=== PATIENT | male | born 1950 | race Caucasian/White ===

== ENCOUNTER 2016-05-26 10:52 | Outpatient (CLI) | payer OTHER | END 2016-05-26 10:53 | disposition home or self-care (01) | DX: I10 Essential (primary) hypertension (principal); E78.00 Pure hypercholesterolemia, unspecified; Z13.1 Encounter for screening for diabetes mellitus; E66.9 Obesity, unspecified ==

== ENCOUNTER 2016-06-02 09:43 | Outpatient (CLI) | payer OTHER | END 2016-06-02 09:44 | disposition home or self-care (01) | DX: E78.00 Pure hypercholesterolemia, unspecified (principal); R73.9 Hyperglycemia, unspecified ==

== ENCOUNTER 2017-03-28 10:54 | Outpatient (CLI) | payer MEDICARE, OTHER ==
[2017-03-28 17:41] LABS: BASOPHILS # (AUTO) 0.1 10^3/uL (0.0-0.1); BASOPHILS % (AUTO) 1.1 %; EOSINOPHILS # (AUTO) 0.1 10^3/uL (0.0-0.7); EOSINOPHILS % (AUTO) 1.6 %; HGB - HEMOGLOBIN 14.8 g/dL (14.0-18.0); LYMPHOCYTES # (AUTO) 2.3 10^3/uL (1.5-3.5); LYMPHOCYTES % (AUTO) 31.4 %; MEAN CORPUSCULAR HEMOGLOBIN 29.7 pg (27.0-31.0); MEAN CORPUSCULAR HGB CONC 33.1 g/dL (32.0-36.0); MEAN CORPUSCULAR VOLUME 89.8 fL (80.0-94.0); MONOCYTES # (AUTO) 0.6 10^3/uL (0.0-1.0); NEUTROPHILS # (AUTO) 4.2 10^3/uL (1.5-6.6); NEUTROPHILS % (AUTO) 57.9 %; PLT - PLATELET COUNT 258 10^3/uL (130-450); RED CELL DISTRIBUTION WIDTH 14.1 % (12.0-15.0); WHITE BLOOD COUNT 7.3 x10^3/uL (4.8-10.8)
[2017-03-28 18:13] LABS: ALBUMIN 4.8 g/dL (3.2-5.5); ALBUMIN/GLOBULIN RATIO 1.9 (1.0-2.2); ALKALINE PHOSPHATASE 61 IU/L (42-121); ALT ALANINE AMINOTRANSFERASE 92 IU/L (10-60); AST ASPARTATE AMINOTRANSFERASE 49 IU/L (10-42); BILIRUBIN,TOTAL 0.8 mg/dL (0.2-1.0); BUN - BLOOD UREA NITROGEN 12 mg/dL (6-20); CALCIUM 9.2 mg/dL (8.5-10.3); CARBON DIOXIDE - CO2 24 mmol/L (21-32); CHLORIDE 103 mmol/L (101-111); CHOL/HDL RATIO 4.8 (<5.0); CHOLESTEROL 160 mg/dL; CREATININE 0.9 mg/dL (0.6-1.2); GFR - MDRD 85 (>89); GLUCOSE 124 mg/dL (70-100); HDL CHOLESTEROL 33 mg/dL; LDL CHOLESTEROL,CALCULATED 69 mg/dL; LDL/HDL RATIO 2.1 (<3.6); SODIUM 137 mmol/L (135-145); TOTAL PROTEIN 7.3 g/dL (6.7-8.2); VLDL CHOLESTEROL 58 mg/dL
[2017-03-28 18:20] LABS: THYROID STIMULATING HORMONE 1.12 uIU/mL (0.34-5.60)
[2017-03-28 18:31] LABS: FOLATE 17.33 ng/mL (5.90 - >24.8)
== END 2017-03-28 10:55 | disposition home or self-care (01) ==
LOC: LAB.F 10:54
PROVIDERS: ATTEND Family Medicine
DX: R25.1 Tremor, unspecified (principal); E78.00 Pure hypercholesterolemia, unspecified; K21.9 Gastro-esophageal reflux disease without esophagitis; I10 Essential (primary) hypertension; Z13.21 Encounter for screening for nutritional disorder
CPT/HCPCS: 36415; 80053; 80061; 82306; 82607; 82746; 83721; 84443; 85025

== ENCOUNTER 2017-04-12 07:45 | Outpatient (CLI) | payer MEDICARE, OTHER ==
[2017-04-12 12:08] LABS: HB2 TOTAL 16.1 g/dL; HEMOGLOBIN A1C 0.76 g/dL; HEMOGLOBIN A1C % 6.5 % (4.6-6.2)
== END 2017-04-12 07:46 | disposition home or self-care (01) ==
LOC: LAB.F 07:45
PROVIDERS: ATTEND Physician Assistant Medical
DX: R73.01 Impaired fasting glucose (principal); E29.1 Testicular hypofunction
CPT/HCPCS: 36415; 81599; 83036; 84402; 84403

== ENCOUNTER 2017-05-08 13:01 | Outpatient (CLI) | payer MEDICARE, OTHER | END 2017-05-08 13:02 | disposition home or self-care (01) | LOC: SC 13:01 | PROVIDERS: ATTEND Internal Medicine Pulmonary Disease | DX: G47.33 Obstructive sleep apnea (adult) (pediatric) (principal) | CPT/HCPCS: 99203; G0463; 99212 ==

== ENCOUNTER 2017-05-10 08:34 | Day surgery (SDC) | payer MEDICARE, OTHER ==
[2017-05-10] MEDS ORDERED: ONDANSETRON 4 MG/2 ML VIAL IVP ONE (09:00)
[2017-05-10] MEDS ORDERED: MIDAZOLAM 2 MG/2 ML VIAL IVP ONE (09:00)
[2017-05-10] MEDS ORDERED: fentaNYL 100 MCG/2 ML VIAL IVP ONE (09:00)
[2017-05-10] MEDS ORDERED: LACTATED RINGERS 1,000 ML IV ONE (09:05)
[2017-05-10 10:50] VITALS: BP 120/87
== END 2017-05-10 08:35 | disposition home or self-care (01) ==
LOC: SDS 08:34
PROVIDERS: ATTEND Surgery
PROC: 0DBL8ZX Excision of Transverse Colon, Via Natural or Artificial Opening Endoscopic, Diagnostic (ICD-10-PCS; 2017-05-10)
PROC: 0DBH8ZX Excision of Cecum, Via Natural or Artificial Opening Endoscopic, Diagnostic (ICD-10-PCS; 2017-05-10)
PROC: 0DBM8ZX Excision of Descending Colon, Via Natural or Artificial Opening Endoscopic, Diagnostic (ICD-10-PCS; 2017-05-10)
PROC: 0DBK8ZX Excision of Ascending Colon, Via Natural or Artificial Opening Endoscopic, Diagnostic (ICD-10-PCS; principal; 2017-05-10 09:14)
DX: Z12.11 Encounter for screening for malignant neoplasm of colon (principal); K57.30 Diverticulosis of large intestine without perforation or abscess without bleeding; K64.8 Other hemorrhoids; D12.0 Benign neoplasm of cecum; D12.2 Benign neoplasm of ascending colon; D12.4 Benign neoplasm of descending colon; D12.3 Benign neoplasm of transverse colon; K51.40 Inflammatory polyps of colon without complications; I10 Essential (primary) hypertension; E78.00 Pure hypercholesterolemia, unspecified; K21.9 Gastro-esophageal reflux disease without esophagitis; G47.33 Obstructive sleep apnea (adult) (pediatric); Z79.82 Long term (current) use of aspirin
CPT/HCPCS: 45380; 45385; J7120

== ENCOUNTER 2017-06-15 13:01 | Emergency (ER) | payer MEDICARE, OTHER ==
[2017-06-15] MEDS ORDERED: IPRATROPIUM/ALBUTEROL 3 ML NEB INH STA (13:20)
--- NOTE | 2017-06-15 13:52 | XRAY Report ---
EXAM: CHEST RADIOGRAPHY EXAM DATE: 06/15/2017 01:45 PM. CLINICAL HISTORY: Cough with dyspnea. COMPARISON: 05/05/2008. TECHNIQUE: 2 views. FINDINGS: Lungs/Pleura: Lung volumes are low. There is no consolidation or edema. Negative for pleural effusion and pneumothorax. Mediastinum: Heart size is normal. Trachea is midline. Other: None. IMPRESSION: Low lung volumes. Otherwise negative. [facility] Referring Provider Line: [phone] SITE ID: [id number]
--- NOTE | 2017-06-15 14:07 | ED Physician Documentation ---
PD HPI DYSPNEA - Stated complaint Stated Complaint: COUGH - Chief complaint Chief Complaint: Resp - History obtained from History obtained from: Patient - History of Present Illness Timing - onset: How many days ago (3) Timing - duration: Days (3) Timing - details: Still present Worsened by: Coughing Associated symptoms: Cough, Other (Sore throat.) - Additional information Additional information: The patient is a 66-year-old male who presents with cough of 3 days' duration. It is nonproductive, and he denies fever. He reports generalized achiness, sore throat, and slight shortness of breath. He denies headache, chest pain, nausea or vomiting. His cough is worse when lying down, and is interfering with his sleep. He was seen by his primary physician 3 days ago and was prescribed amoxicillin for bronchitis. His was diagnosed with bronchitis one week ago, and her symptoms have improved. He does not smoke cigarettes. Review of Systems Constitutional: reports: Myalgias. denies: Fever Eyes: denies: Discharge Ears: denies: Ear pain Nose: reports: Congestion Throat: reports: Sore throat Cardiac: denies: Chest pain / pressure Respiratory: reports: Dyspnea (slight), Cough GI: denies: Abdominal Pain, Nausea, Vomiting : denies: Dysuria Skin: denies: Rash Musculoskeletal: reports: Back pain. denies: Extremity pain, Extremity swelling Neurologic: denies: Headache PD PAST MEDICAL HISTORY - Past Medical History Past Medical History: Yes Cardiovascular: Hypertension, High cholesterol Respiratory: Other Endocrine/Autoimmune: None GI: Colon polyps : None HEENT: Chronic sinusitis Psych: None Musculoskeletal: Other Derm: None - Past Surgical History General: Cholecystectomy - Present Medications Home Medications: Ambulatory Orders Medication Instructions Recorded Confirmed Aspirin 81 mg PO DAILY 05/09/17 05/10/17 Chondroitin Sulfate A Sodium 1 tab ORAL DAILY 05/09/17 05/10/17 [Chondroitin Sulfate] Esomeprazole Magnesium [Nexium 1 tab ORAL DAILY 05/09/17 05/10/17 24Hr] Lisinopril 1 tab ORAL DAILY 05/09/17 05/10/17 Multivitamin [Multiple Vitamins] 1 tab ORAL DAILY 05/09/17 05/10/17 Rosuvastatin Calcium [Crestor] 20 mg PO DAILY 05/09/17 05/10/17 amLODIPine [Norvasc] 10 mg PO DAILY 05/09/17 05/10/17 Albuterol Sulfate [Proventil Hfa 1 - 2 puffs INH Q4H PRN #1 inhaler 06/15/17 Inhaler] Inhaler, Assist Devices 1 each MC PRN PRN #1 spacer 06/15/17 [Aerochamber Mini] predniSONE [Prednisone] 30 mg PO DAILY #15 tablet 06/15/17 - Allergies Allergies/Adverse Reactions: Allergies Allergy/AdvReac Type Severity Reaction Status Date / Time codeine Allergy Hives Verified 05/10/17 09:09 - Social History Does the pt smoke?: No Smoking Status: Never smoker PD ED PE NORMAL - Vitals Vital signs reviewed: Yes (Initially hypertensive.) - General General: Alert and oriented X 3, Well developed/nourished - HEENT HEENT: Atraumatic, EOMI, Ears normal, Moist mucous membranes, Pharynx benign - Neck Neck: Supple, no meningeal sign, No adenopathy, No JVD - Cardiac Cardiac: RRR, No murmur - Respiratory Respiratory: Other (Few scattered expiratory wheezes. No rales or rhonchi.) - Abdomen Abdomen: Soft, Non tender - Back Back: No CVA TTP - Derm Derm: No rash - Extremities Extremities: No edema, No calf tenderness / cord - Neuro Neuro: Alert and oriented X 3, No motor deficit, Normal speech Results - Vitals Vitals: Vital Signs - 24 hr 06/15/17 06/15/17 06/15/17 13:07 14:00 14:49 Temperature 36.9 C 37.7 C H Heart Rate 95 94 104 H Respiratory 18 20 19 Rate Blood Pressure 155/86 H 139/90 H O2 Saturation 96 94 Oxygen O2 Source Room air - Labs Labs: Laboratory Tests 06/15/17 13:33 Influenza A (Rapid) Negative Influenza B (Rapid) Negative - Rads (name of study) CXR Radiology: Prelim report reviewed, EMP read contemporaneously, See rad report ( Low lung volumes. Otherwise normal.) PD MEDICAL DECISION MAKING - ED course Complexity details: reviewed results, re-evaluated patient, considered differential, d/w patient, d/w family ED course: The patient's presentation is most consistent with acute asthmatic bronchitis. Chest x-ray does not reveal evidence of pneumonia, and clinically his presentation does not suggest congestive heart failure, and I doubt pulmonary embolus. Influenza swab is negative. Treatment in the emergency department included administration of DuoNeb nebulizer, which improved his air movement, and after which he coughed up a mucous plug. He is being discharged with prescription for albuterol inhaler and prednisone. I discussed with him and his the expected course of illness, outpatient treatment and follow-up, as well as potentially worrisome signs or symptoms that should prompt reevaluation in the emergency department. Departure - Departure Disposition: 01 Home, Self Care Clinical Impression: Bronchitis Condition: Stable Instructions: ED Bronchitis Asthmatic Follow-Up: Vanessa Peña PA-C [Primary Care Provider] - Prescriptions: Albuterol Sulfate [Proventil Hfa Inhaler] 1 - 2 puffs INH Q4H PRN #1 inhaler PRN Reason: Shortness Of Air/Wheezing Inhaler, Assist Devices [Aerochamber Mini] 1 each MC PRN PRN #1 spacer PRN Reason: Cough predniSONE [Prednisone] 30 mg PO DAILY #15 tablet Comments: Use the albuterol inhaler every 4-6 hours if needed for breathing difficulty. Take prednisone daily as prescribed. Follow up with your primary physician within 1-2 weeks. Call to schedule appointment. Return to the emergency department if you develop increasing difficulty breathing, or otherwise worsening symptoms. Discharge Date/Time: 06/15/17 14:49
[2017-06-15 14:51] VITALS: BP 139/90
== END 2017-06-15 14:49 | disposition home or self-care (01) ==
LOC: ED 13:01
DX: J40 Bronchitis, not specified as acute or chronic (principal); I10 Essential (primary) hypertension; E78.00 Pure hypercholesterolemia, unspecified
CPT/HCPCS: 71046; 87275; 87276; 94640; 99283; 99284

== ENCOUNTER 2017-06-25 19:12 | Outpatient (CLI) | payer MEDICARE, OTHER | END 2017-06-25 19:13 | disposition home or self-care (01) | LOC: SC 19:12 | PROVIDERS: ATTEND Internal Medicine Pulmonary Disease | DX: G47.33 Obstructive sleep apnea (adult) (pediatric) (principal); G47.61 Periodic limb movement disorder | CPT/HCPCS: 95810 ==

== ENCOUNTER 2017-07-17 15:36 | Outpatient (CLI) | payer MEDICARE, OTHER | END 2017-07-17 15:37 | disposition home or self-care (01) | LOC: SC 15:36 | PROVIDERS: ATTEND Nurse Practitioner Family | DX: G47.33 Obstructive sleep apnea (adult) (pediatric) (principal); G47.61 Periodic limb movement disorder | CPT/HCPCS: 99214 ==

== ENCOUNTER 2017-08-03 11:31 | Outpatient (CLI) | payer MEDICARE, OTHER | END 2017-08-03 11:32 | disposition home or self-care (01) | LOC: LAB.F 11:31 | PROVIDERS: ATTEND Internal Medicine | DX: E29.1 Testicular hypofunction (principal) | CPT/HCPCS: 36415; 84403 ==

== ENCOUNTER 2017-09-10 10:42 | Outpatient (CLI) | payer MEDICARE, OTHER | END 2017-09-10 10:43 | disposition home or self-care (01) | LOC: SC 10:42 | PROVIDERS: ATTEND Nurse Practitioner Family | DX: G47.33 Obstructive sleep apnea (adult) (pediatric) (principal) | CPT/HCPCS: 99215; G0463; 99212 ==

== ENCOUNTER 2017-11-24 19:21 | Outpatient (CLI) | payer MEDICARE, OTHER | END 2017-11-24 19:22 | disposition home or self-care (01) | LOC: SC 19:21 | PROVIDERS: ATTEND Internal Medicine Pulmonary Disease | DX: G47.33 Obstructive sleep apnea (adult) (pediatric) (principal); G47.61 Periodic limb movement disorder | CPT/HCPCS: 95811 ==

== ENCOUNTER 2018-01-01 14:06 | Outpatient (CLI) | payer MEDICARE, OTHER | END 2018-01-01 14:07 | disposition home or self-care (01) | LOC: SC 14:06 | PROVIDERS: ATTEND Nurse Practitioner Family | DX: G47.33 Obstructive sleep apnea (adult) (pediatric) (principal); G47.61 Periodic limb movement disorder | CPT/HCPCS: 99214; G0463; 99212 ==

== ENCOUNTER 2018-02-23 19:07 | Outpatient (CLI) | payer MEDICARE, OTHER | END 2018-02-24 19:08 | disposition EMS.NT | LOC: EMS 19:07 | PROVIDERS: ATTEND Surgery | DX: R07.89 Other chest pain (principal) ==

== ENCOUNTER 2018-04-01 13:05 | Outpatient (CLI) | payer MEDICARE, OTHER | END 2018-04-01 13:06 | disposition home or self-care (01) | LOC: SC 13:05 | PROVIDERS: ATTEND Nurse Practitioner Family | DX: G47.33 Obstructive sleep apnea (adult) (pediatric) (principal) | CPT/HCPCS: 99214; G0463; 99212 ==

== ENCOUNTER 2018-05-01 08:00 | Outpatient (CLI) | payer MEDICARE, OTHER ==
[2018-05-01 17:52] LABS: BASOPHILS # (AUTO) 0.1 10^3/uL (0.0-0.1); EOSINOPHILS # (AUTO) 0.2 10^3/uL (0.0-0.7); HGB - HEMOGLOBIN 15.5 g/dL (14.0-18.0); LYMPHOCYTES # (AUTO) 2.3 10^3/uL (1.5-3.5); LYMPHOCYTES % (AUTO) 29.4 %; MEAN CORPUSCULAR HEMOGLOBIN 29.4 pg (27.0-31.0); MEAN CORPUSCULAR HGB CONC 32.7 g/dL (32.0-36.0); MEAN PLATELET VOLUME 9.1 fL (7.4-11.4); MONOCYTES # (AUTO) 0.6 10^3/uL (0.0-1.0); MONOCYTES % (AUTO) 7.6 %; NEUTROPHILS # (AUTO) 4.8 10^3/uL (1.5-6.6); PLT - PLATELET COUNT 295 10^3/uL (130-450); RED BLOOD COUNT 5.26 10^6/uL (4.70-6.10); RED CELL DISTRIBUTION WIDTH 14.9 % (12.0-15.0); WHITE BLOOD COUNT 7.9 x10^3/uL (4.8-10.8)
== END 2018-05-01 23:59 | disposition home or self-care (01) ==
LOC: LAB.F 08:00
PROVIDERS: ATTEND Internal Medicine Gastroenterology
DX: E66.01 Morbid (severe) obesity due to excess calories (principal); I10 Essential (primary) hypertension
CPT/HCPCS: 36415; 85025

== ENCOUNTER 2018-05-23 12:34 | Day surgery (SDC) | payer MEDICARE, OTHER ==
--- NOTE | 2018-05-23 13:26 | ANESTHESIA ---
Pre-Anesthesia VS, & Labs - Diagnosis History of colon polyps and GERD - Procedure EGD/Coloscopy Vital Signs: Temp Pulse Resp BP Pulse Ox 37.2 C 80 20 155/94 H 97 05/23/18 12:45 05/23/18 12:45 05/23/18 12:45 05/23/18 12:45 05/23/18 12:45 Height 5 ft 8 in Weight (kg) 112.4 kg Body Mass Index 39.5 - NPO >8 hours Last Fluid Intake: last prep drink at 0800 Home Medications and Allergies Home Medications: Ambulatory Orders Albuterol Sulfate [Proair Hfa Inhaler] 2 puffs INH Q4H PRN 04/18/18 Fluticasone Propionate [Flovent Diskus] 1 spray BARBARA BID 04/18/18 Fluticasone/Salmeterol [Advair 250-50 Diskus] 1 spray IH BID 04/18/18 Omeprazole 20 mg PO QDDINNER 04/18/18 Testosterone Cypionate [Depo-Testosterone] 0.5 ml IM OAW 04/18/18 Aspirin 81 mg PO DAILY 05/09/17 Lisinopril 40 mg PO DAILY 05/09/17 Multivitamin [Multiple Vitamins] 1 tab ORAL DAILY 05/09/17 Rosuvastatin Calcium [Crestor] 20 mg PO QPM 05/09/17 amLODIPine [Norvasc] 10 mg PO DAILY 05/09/17 Albuterol Sulfate [Proair Hfa Inhaler] 2 puffs INH Q4H PRN 04/18/18 Fluticasone Propionate [Flovent Diskus] 1 spray BARBARA BID 04/18/18 Fluticasone/Salmeterol [Advair 250-50 Diskus] 1 spray IH BID 04/18/18 Omeprazole 20 mg PO QDDINNER 04/18/18 Testosterone Cypionate [Depo-Testosterone] 0.5 ml IM OAW 04/18/18 Allergies/Adverse Reactions: Allergies Allergy/AdvReac Type Severity Reaction Status Date / Time codeine Allergy paranoid Verified 04/18/18 10:20 Anes History & Medical History - Anesthetic History Anesthesia Complications: reports: Post-Operative Nausea/Vomiting - Medical History Cardiovascular: reports: Hypertension, High cholesterol Pulmonary: reports: Sleep apnea, CPAP use, 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) Gastrointestinal: reports: GERD, Colon polyps Urinary: reports: None Neuro: reports: None Musculoskeletal: reports: Other Endocrine/Autoimmune: reports: None Skin: reports: None Smoking Status: Never smoker Psychosocial: reports: Other (PTSD) - Surgical History General: Cholecystectomy Exam General: Alert, Oriented x3, Cooperative, No acute distress Dental: WNL Mouth Openin Fingerbreadth Neck Mobility: Normal Mallampati classification: II Thyromental Distance: 4-6 cm Respiratory: Lungs clear, Normal breath sounds, No respiratory distress, No accessory muscle use Cardiovascular: Regular rate, Normal S1, Normal S2, No murmurs Mental/Cognitive Status: Alert/Oriented X3, Normal for patient Plan Anesthesia Type: MAC Consent for Procedure(s) Verified and Reviewed: Yes Code Status: Attempt Resuscitation ASA classification: 3-Severe systemic disease Is this case an emergency?: No
[2018-05-23] MEDS ORDERED: MIDAZOLAM 2 MG/2 ML VIAL ONE (13:46)
[2018-05-23] MEDS ORDERED: fentaNYL 100 MCG/2 ML VIAL ONE (13:46)
[2018-05-23] MEDS ORDERED: LIDO GARGLE 30 ML BOTTLE ONE (14:47)
[2018-05-23] MEDS ORDERED: LIDO GARGLE 30 ML BOTTLE PO ONE (15:01)
[2018-05-23] MEDS ORDERED: LACTATED RINGERS 1,000 ML IV ONE (15:01)
[2018-05-23] MEDS ORDERED: PROPOFOL 200 MG/20 ML VIAL IVP ONE (16:06)
[2018-05-23 16:25] VITALS: BP 138/81
== END 2018-05-23 12:35 | disposition home or self-care (01) ==
LOC: SDS 12:34
PROVIDERS: ATTEND Internal Medicine Gastroenterology
PROC: 0DBK8ZZ Excision of Ascending Colon, Via Natural or Artificial Opening Endoscopic (ICD-10-PCS; 2018-05-23)
PROC: 0DBM8ZZ Excision of Descending Colon, Via Natural or Artificial Opening Endoscopic (ICD-10-PCS; 2018-05-23)
PROC: 0DBH8ZZ Excision of Cecum, Via Natural or Artificial Opening Endoscopic (ICD-10-PCS; 2018-05-23)
PROC: 0DBP8ZZ Excision of Rectum, Via Natural or Artificial Opening Endoscopic (ICD-10-PCS; 2018-05-23)
PROC: 0DBL8ZZ Excision of Transverse Colon, Via Natural or Artificial Opening Endoscopic (ICD-10-PCS; principal; 2018-05-23 14:00)
PROC: 0DB78ZX Excision of Stomach, Pylorus, Via Natural or Artificial Opening Endoscopic, Diagnostic (ICD-10-PCS; 2018-05-23 14:00)
DX: K29.50 Unspecified chronic gastritis without bleeding (principal); K21.9 Gastro-esophageal reflux disease without esophagitis; D12.2 Benign neoplasm of ascending colon; D12.0 Benign neoplasm of cecum; D12.4 Benign neoplasm of descending colon; D12.3 Benign neoplasm of transverse colon; D12.8 Benign neoplasm of rectum; K57.30 Diverticulosis of large intestine without perforation or abscess without bleeding; I10 Essential (primary) hypertension; E78.00 Pure hypercholesterolemia, unspecified; E66.01 Morbid (severe) obesity due to excess calories; Z68.37 Body mass index [BMI] 37.0-37.9, adult; Z88.5 Allergy status to narcotic agent; Z79.51 Long term (current) use of inhaled steroids
CPT/HCPCS: 43239; 45380; 45385; A9270; J7120

== ENCOUNTER 2018-09-03 12:46 | Outpatient (CLI) | payer MEDICARE, OTHER | END 2018-09-03 12:47 | disposition home or self-care (01) | LOC: SC 12:46 | PROVIDERS: ATTEND Nurse Practitioner Family | DX: G47.33 Obstructive sleep apnea (adult) (pediatric) (principal) | CPT/HCPCS: 99214; G0463; 99212 ==

== ENCOUNTER 2019-02-12 10:02 | Outpatient (CLI) | payer MEDICARE, OTHER ==
[2019-02-12 19:00] LABS: BASOPHILS # (AUTO) 0.1 10^3/uL (0.0-0.1); BASOPHILS % (AUTO) 0.8 %; EOSINOPHILS # (AUTO) 0.1 10^3/uL (0.0-0.7); EOSINOPHILS % (AUTO) 1.5 %; HGB - HEMOGLOBIN 16.9 g/dL (14.0-18.0); LYMPHOCYTES # (AUTO) 2.6 10^3/uL (1.5-3.5); LYMPHOCYTES % (AUTO) 35.6 %; MEAN CORPUSCULAR HEMOGLOBIN 29.5 pg (27.0-31.0); MEAN CORPUSCULAR HGB CONC 32.8 g/dL (32.0-36.0); MEAN CORPUSCULAR VOLUME 90.2 fL (80.0-94.0); MEAN PLATELET VOLUME 11.1 fL (7.4-11.4); MONOCYTES # (AUTO) 0.7 10^3/uL (0.0-1.0); MONOCYTES % (AUTO) 9.4 %; NEUTROPHILS # (AUTO) 3.7 10^3/uL (1.5-6.6); NEUTROPHILS % (AUTO) 51.7 %; PLT - PLATELET COUNT 259 10^3/uL (130-450); RED BLOOD COUNT 5.72 10^6/uL (4.70-6.10); RED CELL DISTRIBUTION WIDTH 13.9 % (12.0-15.0); WHITE BLOOD COUNT 7.2 x10^3/uL (4.8-10.8)
[2019-02-12 19:18] LABS: ALBUMIN 4.8 g/dL (3.2-5.5); ALBUMIN/GLOBULIN RATIO 1.8 (1.0-2.2); BILIRUBIN,TOTAL 0.8 mg/dL (0.2-1.0); CALCIUM 9.1 mg/dL (8.5-10.3); TOTAL PROTEIN 7.5 g/dL (6.7-8.2)
== END 2019-02-12 10:03 | disposition home or self-care (01) ==
LOC: LAB.S 10:02
PROVIDERS: ATTEND Internal Medicine
DX: R10.31 Right lower quadrant pain (principal)
CPT/HCPCS: 36415; 80053; 85025

== ENCOUNTER 2019-02-21 15:11 | Outpatient (CLI) | payer MEDICARE, OTHER ==
[2019-02-21] MEDS ORDERED: IOVERSOL 320 50 ML VIAL ONE (15:23)
[2019-02-21] MEDS ORDERED: IOVERSOL 320 100 ML VIAL IVP ONE ×2 (15:23→18:22)
[2019-02-21] MEDS ORDERED: IOVERSOL 320 50 ML VIAL PO ONE (18:22)
--- NOTE | 2019-02-22 10:16 | XRAY Report ---
Reason: BILAT SHOULDER PAIN X 3 MONTHS NO KNOWN TRAUMA Procedure Date: 02/21/2019 Accession Number: [id number] / [id number] Procedure: XR - Shoulder 2 View BILAT CPT Code: Final Report FULL RESULT: EXAM: BILATERAL SHOULDER RADIOGRAPHY EXAM DATE: 02/21/2019 03:32 PM HISTORY: BILAT SHOULDER PAIN X 3 MONTHS NO KNOWN TRAUMA COMPARISON: None. TECHNIQUE: 2 views of each shoulder which appear to be a Grashey and scapular Y views FINDINGS: Right: Glenohumeral joint: Somewhat suboptimal positioning. No significant abnormality seen. AC joint: Limited by suboptimal positioning. Probable mild degenerative arthritis. No significant focal bone lesion. Unremarkable soft tissues. Left: Glenohumeral joint: Unremarkable. AC joint: Probable mild degenerative arthritis. No significant focal bone lesion. Unremarkable soft tissues. IMPRESSION: Mild bilateral SI joint degenerative arthritis. Normal alignment at both shoulders. No significant glenohumeral abnormality seen. [facility]
--- NOTE | 2019-02-23 09:12 | CT Report ---
Reason: ABD PAIN, RLQ Procedure Date: 02/21/2019 Accession Number: [id number] / [id number] Procedure: CT - ABDOMEN W CPT Code: Final Report FULL RESULT: EXAM: CT ABDOMEN AND PELVIS EXAM DATE: 02/21/2019 04:40 PM. CLINICAL HISTORY: Abdominal pain, right lower quadrant. COMPARISONS: None. TECHNIQUE: Routine helical CT imaging was performed through the abdomen and pelvis. IV contrast: 100 cc of Optiray 320. Enteric contrast: No. Reconstructions: Coronal and sagittal. In accordance with CT protocol optimization, one or more of the following dose reduction techniques were utilized for this exam: automated exposure control, adjustment of mA and/or KV based on patient size, or use of iterative reconstructive technique. FINDINGS: Lung Bases: Bases are clear. Small incidental hiatal hernia. Multivessel coronary artery calcifications without cardiac enlargement or pericardial effusion noted. Liver: Mildly fatty liver. No mass. No intrahepatic bile duct dilation. Portal vein is patent. Gallbladder/Bile Ducts: Gallbladder is absent. No common bile duct dilation noted. Spleen: Normal. Pancreas: Normal. Adrenal Glands: Normal. Kidneys: Normal. No masses or hydronephrosis. Peritoneal Cavity/Bowel: Normal. No free fluid, free air or adenopathy. No masses or acute inflammatory process. Appendix not seen. No right lower quadrant inflammation. Colonic diverticulosis is noted. Segment of underdistended sigmoid colon demonstrates mild wall thickening without significant adjacent inflammation. No bowel dilation, perforation or abscess seen. Given the under distention and lack of adjacent inflammation, favor a benign process rather than infection or acute abnormality. Pelvic Organs: Mild prostate and seminal vesicle enlargement noted. No obvious mass identified. Otherwise, the bladder and visualized pelvic organs are within normal limits. No collections, ascites or adenopathy. Vasculature: Patchy atheromatous plaques are present in the abdominal aorta and branch vessels. No aneurysm. Normal IVC. Bones: No significant abnormality. Other: None. IMPRESSION: 1. Segment of underdistended sigmoid colon demonstrates mild wall thickening without significant adjacent inflammation. No bowel dilation, perforation or abscess seen. Given the under distention and lack of adjacent inflammation, favor a benign process rather than infection or acute abnormality. Appendix not seen. No focal right lower quadrant inflammation. 2. Mildly fatty liver. No mass. 3. Previous cholecystectomy. 4. Mildly enlarged prostate and seminal vesicles. No prostate mass. [facility]
== END 2019-02-21 15:12 | disposition home or self-care (01) ==
LOC: DI 15:11
PROVIDERS: ATTEND Internal Medicine
DX: R10.31 Right lower quadrant pain (principal); M25.511 Pain in right shoulder; M25.512 Pain in left shoulder; M47.898 Other spondylosis, sacral and sacrococcygeal region; Z90.49 Acquired absence of other specified parts of digestive tract; K76.0 Fatty (change of) liver, not elsewhere classified; N40.0 Benign prostatic hyperplasia without lower urinary tract symptoms
CPT/HCPCS: 73030; 74160; Q9967

== ENCOUNTER 2019-11-05 10:56 | Outpatient (CLI) | payer MEDICARE, OTHER ==
--- NOTE | 2019-11-05 11:43 | SLEEP CARE CONSULTATION ---
Information from patient questionnaire entered by Pastora Ness. I have reviewed and concur with the information entered by Pastora Ness. This document represents the service I personally performed and the decisions made by , Jaylyn Randle ARNP. History of Present Illness Service Date and Time: 11/05/2019 1056 Previous diagnosis: Severe, Obstructive Sleep Apnea-Hypopnea Syndrome AHI: 58.8 (in 2018) Reason for follow up: annual (last seen 2019) Equipment type: CPAP Equipment obtained from: [facility] (getting supplies as needed but feels they are overdoing supplies) Mask style: Nasal (over nose; would like to change to pillows) Backup mask available: Yes (old mask) Last cushion change: 2 weeks ago Prior sleep studies: Yes (2007 in [place]) Year and Where: 2018 - [facility] Type of Sleep Study: Polysomnography HPI additional information: ЮЛИЯ CHRISTINE was diagnosed to have severe, AHI 58.8, obstructive sleep apnea- hypopnea syndrome and returned today for CPAP therapy annual follow-up. CPAP Compliance Data - Data Reviewed with Patient Average duration of nightly device use: 8.1 Compliance rate %: 98.9 (180 days) Current pressure setting (cmH2O): 11-15 Humidity settin Heated hose settin Average residual AHI: 0.9 Average large leak: 6 min 51 sec Subjective Patient concerns: reports: mask discomfort (would like to change to nasal pillows that are more comfortable for him). denies: aerophagia, air blowing in eyes, mask leak noise, condensation in mask/hose, nasal congestion, dry mouth, nose, throat, epistaxis, other Observed to snore while using device: No Current pressure setting perceived as: comfortable On therapy, patient: reports: sleeping better, awakening more refreshed, being more awake and alert during the day, more rested overall. denies: drowsiness while driving Initial [place] Sleepiness Scale score: 13 (in 2018) Current [place] Sleepiness Scale score: 10 Allergies and Home Medications Drug allergies reviewed: Yes (codiene) Home medication list reviewed: Yes (no changes) Review of Systems Review of systems same as previous: Yes (no changes) Physical Exam Heart Rate: 64 O2 Saturation: 97 Height: 5 ft 8 in Weight: 266 lb Body Mass Index: 40.4 BMI Classification: Morbidly Obese Impression and Plan 1. Obstructive Sleep Apnea-Hypopnea Syndrome, severe, with good treatment compliance and good apnea control. On CPAP therapy, the patient has better sleep quality and is more rested overall. He has been using [employer] for his DME. He states he gets supplies as needed but feels they are just trying to get him to order more and more stuff. He has ordered supplies from other places, like filters, because he they don't send the right filters for his machine. He also used to use a nasal pillow cushion mask but they only send him a nasal mask that just fits over his nose. He states the mask works fine and is comfortable, but he prefers the other mask. He states his machine is working fine but about 3 weeks ago when he tried to change the humidity setting he was unable to adjust it. 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 He was instructed on how to change his setting and to let us know if he is unable to do this on his own. Patient's apnea severity and rationale for treatment to reduce apnea, improve sleep quality and reduce cardiovascular and cerebrovascular events was reviewed. I also reviewed the benefit of consistent device use of CPAP for hypertension, and depression. * Continue auto CPAP pressure at 11-15 cmH2O * Change mask to nasal pillows mask. * Notify me if snoring with mask or feeling that the pressure is too much or too little * Attempt to lose weight * Call this office if any problems using CPAP * Return for follow up in 1 year, or sooner if concerns arise Visit Type: In Office Time Spent with Patient (minutes): 20 Provider Statement: I spent 100% of the Face to Face Visit with the patient with greater than 50% spent counseling the patient and coordination of care.
== END 2019-11-05 10:57 | disposition home or self-care (01) ==
LOC: SC 10:56
PROVIDERS: ATTEND Nurse Practitioner Family
DX: G47.33 Obstructive sleep apnea (adult) (pediatric) (principal); E66.01 Morbid (severe) obesity due to excess calories; Z68.41 Body mass index [BMI] 40.0-44.9, adult
CPT/HCPCS: 99213; G0463; 99212

== ENCOUNTER 2019-12-24 13:33 | Emergency (ER) | payer MEDICARE, OTHER ==
--- NOTE | 2019-12-24 14:29 | ED Physician Documentation ---
History of Present Illness - Stated complaint Stated Complaint: FEVER - Chief complaint Chief Complaint: Abd Pain - History obtained from History obtained from: Patient - Additonal information Additional information: 68-year-old gentleman has had a fever for the most part for the last 5 days generally around 101. He has a chronic cough. Complains of abdominal pain from coughing, has a known ventral hernia there. He is slightly constipated but denies other bowel issues currently. No sick contacts. The cough is nonproductive. No shortness of breath. Review of Systems Constitutional: reports: Fever, Chills, Fatigue. 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) Neuro: None Endocrine/Autoimmune: None GI: Colon polyps : None HEENT: Chronic sinusitis Psych: None Musculoskeletal: Other Derm: None - Past Surgical History General: Cholecystectomy - Present Medications Home Medications: Ambulatory Orders Medication Instructions Recorded Confirmed Aspirin 81 mg PO DAILY 05/09/17 05/23/18 Multivitamin [Multiple Vitamins] 1 tab ORAL DAILY 05/09/17 05/23/18 Rosuvastatin Calcium [Crestor] 20 mg PO QPM 05/09/17 05/23/18 amLODIPine [Norvasc] 10 mg PO DAILY 05/09/17 05/23/18 lisinopriL [Lisinopril] 40 mg PO DAILY 05/09/17 05/23/18 Albuterol Sulfate [Proair Hfa 2 puffs INH Q4H PRN 04/18/18 04/18/18 Inhaler] Fluticasone Propionate [Flovent 1 spray BARBARA BID 04/18/18 05/23/18 Diskus] Fluticasone/Salmeterol [Advair 1 spray IH BID 04/18/18 05/23/18 250-50 Diskus] Omeprazole 20 mg PO QDDINNER 04/18/18 05/23/18 Testosterone Cypionate 0.5 ml IM OAW 04/18/18 05/23/18 [Depo-Testosterone] - Allergies Allergies/Adverse Reactions: Allergies Allergy/AdvReac Type Severity Reaction Status Date / Time codeine Allergy paranoid Verified 12/24/19 13:57 - Social History Does the pt smoke?: No Smoking Status: Never smoker PD ED PE NORMAL - Vitals Vital signs reviewed: Yes - General General: Alert and oriented X 3, No acute distress - Neck Neck: Supple, no meningeal sign, No bony TTP - Cardiac Cardiac: RRR, No murmur - Respiratory Respiratory: No respiratory distress, Clear bilaterally - Abdomen Abdomen: Soft, Non tender - Derm Derm: No rash - Neuro Neuro: Alert and oriented X 3, Normal speech Results - Vitals Vitals: Vital Signs - 24 hr 12/24/19 12/24/19 13:47 15:31 Temperature 36.8 C 37.2 C Heart Rate 77 80 Respiratory 18 18 Rate Blood Pressure 143/93 H 136/79 H O2 Saturation 96 100 Oxygen O2 Source Room air - Labs Labs: Laboratory Tests 12/24/19 12/24/19 12/24/19 14:34 14:49 14:49 WBC 10.0 RBC 5.81 Hgb 17.3 Hct 51.1 MCV 88.0 MCH 29.8 MCHC 33.9 RDW 14.0 Plt Count 257 MPV 10.4 Neut # (Auto) 6.3 Lymph # (Auto) 2.4 [place] # (Auto) 0.9 Eos # (Auto) 0.2 Baso # (Auto) 0.1 Absolute Nucleated RBC 0.00 Nucleated RBC % 0.0 Sodium 138 Potassium 4.2 Chloride 102 Carbon Dioxide 25 Anion Gap 11.0 BUN 18 Creatinine 1.0 Estimated GFR (MDRD) 75 L Glucose 108 H Lactic Acid Calcium 9.6 Total Bilirubin 0.6 AST 31 ALT 62 H Alkaline Phosphatase 65 Total Protein 7.6 Albumin 4.8 Globulin 2.8 Albumin/Globulin Ratio 1.7 Lipase 21 L Urine Color YELLOW Urine Clarity CLEAR Urine pH 6.0 Ur Specific [place] 1.025 Urine Protein NEGATIVE Urine Glucose (UA) NEGATIVE Urine Ketones NEGATIVE Urine Occult Blood NEGATIVE Urine Nitrite NEGATIVE Urine Bilirubin NEGATIVE Urine Urobilinogen 0.2 (NORMAL) Ur Leukocyte Esterase NEGATIVE Ur Microscopic Review NOT INDICATED Urine Culture Comments NOT INDICATED 12/24/19 14:49 WBC RBC Hgb Hct MCV MCH MCHC RDW Plt Count MPV Neut # (Auto) Lymph # (Auto) [place] # (Auto) Eos # (Auto) Baso # (Auto) Absolute Nucleated RBC Nucleated RBC % Sodium Potassium Chloride Carbon Dioxide Anion Gap BUN Creatinine Estimated GFR (MDRD) Glucose Lactic Acid 1.1 Calcium Total Bilirubin AST ALT Alkaline Phosphatase Total Protein Albumin Globulin Albumin/Globulin Ratio Lipase Urine Color Urine Clarity Urine pH Ur Specific [place] Urine Protein Urine Glucose (UA) Urine Ketones Urine Occult Blood Urine Nitrite Urine Bilirubin Urine Urobilinogen Ur Leukocyte Esterase Ur Microscopic Review Urine Culture Comments - Rads (name of study) 1v Chest Radiology: EMP read contemporaneously (NAD) PD MEDICAL DECISION MAKING - ED course ED course: 68-year-old gentleman with fever, some respiratory complaints. Abdominal pain from a chronic hernia but no tenderness. Diagnostics are unremarkable with normal chest x-ray and labs. Watchful waiting was advised. Covid test is pending. Departure - Departure Disposition: Home, Self Care Clinical Impression: Bronchitis Fever Qualifiers: Fever type: due to other condition Qualified Code(s): R50.81 - Fever presenting with conditions classified elsewhere Condition: Stable Record reviewed to determine appropriate education?: Yes Instructions: ED Fever Unconf Cause Comments: Blood work looks fine, no evidence of pneumonia on x-ray, your urinalysis is normal. Be aware that your coronavirus test is pending and you need to self quarantine until the results are done and negative. We will call you if you have a positive result. Return if worsening, follow-up with your doctor on or about Sunday if not better. You have a Covid test pending. You need to self quarantine until the result is done and negative. Do not leave your house. Do not get near anybody. The results should be done in 48 to 72 hours. We will call with a positive result, the fastest way to get a negative result for confirmation though is to go to the hospital website at [email or web address], click on the my [employer] tab and sign up for the patient portal. Discharge Date/Time: 12/24/19 15:30
[2019-12-24 14:57] LABS: BASOPHILS # (AUTO) 0.1 10^3/uL (0.0-0.1); BASOPHILS % (AUTO) 1.1 %; EOSINOPHILS # (AUTO) 0.2 10^3/uL (0.0-0.7); EOSINOPHILS % (AUTO) 2.2 %; HGB - HEMOGLOBIN 17.3 g/dL (14.0-18.0); LYMPHOCYTES # (AUTO) 2.4 10^3/uL (1.5-3.5); LYMPHOCYTES % (AUTO) 23.9 %; MEAN CORPUSCULAR HEMOGLOBIN 29.8 pg (27.0-31.0); MEAN CORPUSCULAR HGB CONC 33.9 g/dL (32.0-36.0); MEAN PLATELET VOLUME 10.4 fL (7.4-11.4); MONOCYTES # (AUTO) 0.9 10^3/uL (0.0-1.0); MONOCYTES % (AUTO) 8.8 %; NEUTROPHILS # (AUTO) 6.3 10^3/uL (1.5-6.6); NEUTROPHILS % (AUTO) 63.2 %; PLT - PLATELET COUNT 257 10^3/uL (130-450); RED BLOOD COUNT 5.81 10^6/uL (4.70-6.10)
[2019-12-24 15:00] LABS: BILIRUBIN,URINE NEGATIVE (NEGATIVE); GLUCOSE, URINE (UA) NEGATIVE (NEGATIVE); KETONES,URINE (UA) NEGATIVE (NEGATIVE); LEUKOCYTE ESTERASE, URINE NEGATIVE (NEGATIVE); NITRITE,URINE NEGATIVE (NEGATIVE); OCCULT BLOOD,URINE NEGATIVE (NEGATIVE); PROTEIN,URINE NEGATIVE (NEGATIVE); UROBILINOGEN,URINE 0.2 (NORMAL) E.U./dL (NORMAL)
[2019-12-24 15:01] LABS: CLARITY,URINE CLEAR (CLEAR)
--- NOTE | 2019-12-24 15:09 | XRAY Report ---
PROCEDURE: Chest 1 View X-Ray INDICATIONS: cough fever TECHNIQUE: One view of the chest was acquired. COMPARISON: CXR 06/15/2017. CT abdomen and pelvis 02/21/2019. FINDINGS: Surgical changes and devices: None. Lungs and pleura: No pleural effusions or pneumothorax. Lungs are clear. Mediastinum: Mediastinal contours appear unchanged. Heart size is enlarged, unchanged. Bones and chest wall: No suspicious bony lesions. Overlying soft tissues appear unremarkable. IMPRESSION: No consolidation identified to suggest pneumonia. Reviewed by: Danis Canela MD on 12/24/2019 3:08 PM PDT Approved by: Danis Canela MD on 12/24/2019 3:08 PM PDT Station ID: [id number]
[2019-12-24 15:14] LABS: ALBUMIN 4.8 g/dL (3.2-5.5); ALBUMIN/GLOBULIN RATIO 1.7 (1.0-2.2); BILIRUBIN,TOTAL 0.6 mg/dL (0.2-1.0); CALCIUM 9.6 mg/dL (8.5-10.3); TOTAL PROTEIN 7.6 g/dL (6.7-8.2)
[2019-12-24 15:32] VITALS: BP 136/79
== END 2019-12-24 15:30 | disposition home or self-care (01) ==
LOC: ED 13:33
DX: J40 Bronchitis, not specified as acute or chronic (principal); R50.81 Fever presenting with conditions classified elsewhere; Z20.828 Contact with and (suspected) exposure to other viral communicable diseases; K43.9 Ventral hernia without obstruction or gangrene; I10 Essential (primary) hypertension; Z79.82 Long term (current) use of aspirin
CPT/HCPCS: 36415; 71045; 80053; 81003; 83605; 83690; 85025; 99284; U0004; 81001; 87086

== ENCOUNTER 2020-05-06 09:50 | Outpatient (CLI) | payer MEDICARE, OTHER ==
[2020-05-06 14:46] LABS: BASOPHILS # (AUTO) 0.1 10^3/uL (0.0-0.1); BASOPHILS % (AUTO) 1.3 %; EOSINOPHILS # (AUTO) 0.3 10^3/uL (0.0-0.7); EOSINOPHILS % (AUTO) 3.2 %; HCT - HEMATOCRIT 46.6 % (42.0-52.0); HGB - HEMOGLOBIN 15.6 g/dL (14.0-18.0); LYMPHOCYTES # (AUTO) 2.5 10^3/uL (1.5-3.5); LYMPHOCYTES % (AUTO) 31.8 %; MEAN CORPUSCULAR HEMOGLOBIN 30.4 pg (27.0-31.0); MEAN CORPUSCULAR HGB CONC 33.5 g/dL (32.0-36.0); MEAN CORPUSCULAR VOLUME 90.7 fL (80.0-94.0); MEAN PLATELET VOLUME 10.6 fL (7.4-11.4); MONOCYTES # (AUTO) 0.7 10^3/uL (0.0-1.0); MONOCYTES % (AUTO) 8.5 %; NEUTROPHILS # (AUTO) 4.2 10^3/uL (1.5-6.6); NEUTROPHILS % (AUTO) 53.4 %; PLT - PLATELET COUNT 311 10^3/uL (130-450); RED BLOOD COUNT 5.14 10^6/uL (4.70-6.10); RED CELL DISTRIBUTION WIDTH 14.4 % (12.0-15.0); WHITE BLOOD COUNT 7.8 x10^3/uL (4.8-10.8)
[2020-05-06 15:36] LABS: ALBUMIN 4.5 g/dL (3.2-5.5); ALBUMIN/GLOBULIN RATIO 1.7 (1.0-2.2); ALKALINE PHOSPHATASE 50 IU/L (42-121); ALT ALANINE AMINOTRANSFERASE 36 IU/L (10-60); AST ASPARTATE AMINOTRANSFERASE 26 IU/L (10-42); BILIRUBIN,TOTAL 1.1 mg/dL (0.2-1.0); BUN - BLOOD UREA NITROGEN 16 mg/dL (6-20); CARBON DIOXIDE - CO2 25 mmol/L (21-32); CHLORIDE 106 mmol/L (101-111); CHOL/HDL RATIO 4.7 (<5.0); CHOLESTEROL 175 mg/dL; GFR - MDRD 74 (>89); GLUCOSE 135 mg/dL (70-100); HDL CHOLESTEROL 37 mg/dL; LDL CHOLESTEROL,CALCULATED 99 mg/dL; LDL/HDL RATIO 2.7 (<3.6); SODIUM 139 mmol/L (135-145); TOTAL PROTEIN 7.1 g/dL (6.7-8.2); TRIGLYCERIDES 197 mg/dL; VLDL CHOLESTEROL 39 mg/dL
[2020-05-10 16:57] LABS: FREE TESTOSTERONE 135.7 pg/mL (35.0-155.0)
== END 2020-05-06 09:51 | disposition home or self-care (01) ==
LOC: LAB.S 09:50
PROVIDERS: ATTEND Internal Medicine
DX: I10 Essential (primary) hypertension (principal); E78.5 Hyperlipidemia, unspecified; Z12.5 Encounter for screening for malignant neoplasm of prostate; E29.1 Testicular hypofunction
CPT/HCPCS: 36415; 80053; 80061; 84270; 84402; 84403; 85025; G0103; 83721; 84153

== ENCOUNTER 2021-05-10 10:05 | Outpatient (CLI) | payer MEDICARE, OTHER ==
[2021-05-10 11:12] VITALS: BP 122/74
--- NOTE | 2021-05-10 11:12 | SLEEP CARE CONSULTATION ---
Information from patient questionnaire entered by Bi Fernando MA. I have reviewed and concur with the information entered by iB Fernando MA. This document represents the service I personally performed and the decisions made by , Jaylyn Randle ARNP. History of Present Illness Service Date and Time: 05/10/2021 1005 Previous diagnosis: Severe, Obstructive Sleep Apnea-Hypopnea Syndrome AHI: 58.8 (in 2017) Reason for follow up: annual (LAST SEEN 11/2019) Equipment type: CPAP Equipment obtained from: [employer] (getting supplies as needed but feels they are overdoing supplies; haven't ordered supplies in 1 year) Mask style: Nasal (over nose; would like to change to pillows) Backup mask available: Yes (other mask) Prior sleep studies: Yes (2007 in [place]) [facility] additional information: FREDDY CHRISTINE was diagnosed to have severe, AHI 58.8, obstructive sleep apnea- hypopnea syndrome and returned today for CPAP therapy annual follow-up. Sleep Study - Results Prior sleep studies: Yes (2007 in [place]) [facility] Compliance Data - Data Reviewed with Patient Average duration of nightly device use: 8 HOURS 3 MINUTES Compliance rate %: 99.2 Current pressure setting (cmH2O): 11-15 Humidity settin Heated hose settin Average residual AHI: 0.6 Average large leak: 5 SECONDS Subjective Missed days of use due to: reports: other (power outage) Patient concerns: reports: mask leak noise, other (VERY NOISEY). denies: aerophagia, mask discomfort, air blowing in eyes, condensation in mask/hose, nasal congestion, dry mouth, nose, throat, epistaxis Observed to snore while using device: No Current pressure setting perceived as: comfortable On therapy, patient: reports: sleeping better, awakening more refreshed, being more awake and alert during the day, more rested overall. denies: drowsiness while driving Initial [place] Sleepiness Scale score: 13 (in 2017) Current [place] Sleepiness Scale score: 5 (2021) Allergies and Home Medications Home medication list reviewed: Yes (no changes) Allergy and home medication list: Allergies codeine Allergy (Verified 12/24/19 13:57) paranoid Review of Systems Review of systems same as previous: Yes (no changes) Physical Exam Vital signs obtained and entered by: FLOYD JONES Blood Pressure: 122/74 (RIGHT, PULSE 65, RESP 16,) Cuff size: wrist Heart Rate: 62 O2 Saturation: 96 (N95) Height: 5 ft 8 in Weight: 260 lb (W/O CLOTHES) Weight change since last visit: 6 lb loss Body Mass Index: 39.5 BMI Classification: Obese Impression and Plan 1. Obstructive Sleep Apnea-Hypopnea Syndrome, severe, with excellent treatment compliance and excellent apnea control. On CPAP therapy, the patient has better sleep quality and is more rested overall. Freddy would like to change his DME company because he is not happy with [employer] service, billing issues. I will have my genetic coordinator inform of DME options. A DWO prescription will then be made. Patient advised to contact this office if further supply problems. Patient's apnea severity and rationale for treatment to reduce apnea, improve sleep quality and reduce cardiovascular and cerebrovascular events was reviewed. I also reviewed the benefit of consistent device use of CPAP for hypertension and depression. 2. Obesity, unspecified. Patient has lost weight. Currently patients BMI is 39.5. Obesity increases the risk of apnea, CPAP pressure requirements and overall health risks especially cardiovascular and diabetes. He is using inte rmittent fasting to try to lose weight with some success. The patient is advised to continue to try to lose weight. Weight loss can be done with reducing portion size, reducing refined foods and balancing content with vegetables, fruit and whole grain foods. In addition, patient encouraged to get regular exercise. The patient's CPAP pressure range should accommodate some weight loss. Symptoms to report for additional pressure adjustment discussed. * Continue auto CPAP pressure at 11-15 cmH2O * Transfer DME * Update supplies as needed * Notify me if snoring with mask or feeling that the pressure is too much or too little * Continue to try to lose weight * Call this office if any problems using CPAP * Return for follow up in 1 year, or sooner if concerns arise Counseling Topics: Spare mask, Weight loss health impact Visit Type: In Office Time Spent with Patient (minutes): 24 Provider Statement: I spent 100% of the Face to Face Visit with the patient with greater than 50% spent counseling the patient and coordination of care.
== END 2021-05-10 10:06 | disposition home or self-care (01) ==
LOC: SC 10:05
PROVIDERS: ATTEND Nurse Practitioner Family
DX: G47.33 Obstructive sleep apnea (adult) (pediatric) (principal); E66.9 Obesity, unspecified; Z68.39 Body mass index [BMI] 39.0-39.9, adult
CPT/HCPCS: 99213; G0463; 99212

== ENCOUNTER 2021-06-03 08:35 | Outpatient (CLI) | payer MEDICARE, OTHER ==
[2021-06-03 15:13] LABS: BASOPHILS # (AUTO) 0.1 10^3/uL (0.0-0.1); BASOPHILS % (AUTO) 0.9 %; EOSINOPHILS # (AUTO) 0.2 10^3/uL (0.0-0.7); EOSINOPHILS % (AUTO) 2.5 %; HCT - HEMATOCRIT 44.4 % (42.0-52.0); HGB - HEMOGLOBIN 15.1 g/dL (14.0-18.0); LYMPHOCYTES # (AUTO) 2.8 10^3/uL (1.5-3.5); MEAN CORPUSCULAR HEMOGLOBIN 30.5 pg (27.0-31.0); MEAN CORPUSCULAR VOLUME 89.7 fL (80.0-94.0); MEAN PLATELET VOLUME 11.1 fL (7.4-11.4); MONOCYTES # (AUTO) 0.8 10^3/uL (0.0-1.0); MONOCYTES % (AUTO) 11.3 %; NEUTROPHILS % (AUTO) 43.9 %; PLT - PLATELET COUNT 257 10^3/uL (130-450); RED BLOOD COUNT 4.95 10^6/uL (4.70-6.10); RED CELL DISTRIBUTION WIDTH 14.2 % (12.0-15.0); WHITE BLOOD COUNT 6.9 x10^3/uL (4.8-10.8)
[2021-06-03 15:59] LABS: ALBUMIN 4.7 g/dL (3.2-5.5); ALBUMIN/GLOBULIN RATIO 1.9 (1.0-2.2); ALKALINE PHOSPHATASE 62 IU/L (42-121); ALT ALANINE AMINOTRANSFERASE 54 IU/L (10-60); AST ASPARTATE AMINOTRANSFERASE 25 IU/L (10-42); BILIRUBIN,TOTAL 0.8 mg/dL (0.2-1.0); BUN - BLOOD UREA NITROGEN 20 mg/dL (6-20); CALCIUM 9.3 mg/dL (8.5-10.3); CARBON DIOXIDE - CO2 24 mmol/L (21-32); CHLORIDE 101 mmol/L (101-111); CHOLESTEROL 263 mg/dL; CREATININE 1.1 mg/dL (0.6-1.2); GFR - MDRD 66 (>89); GLUCOSE 127 mg/dL (70-100); HDL CHOLESTEROL 44 mg/dL; LDL CHOLESTEROL,CALCULATED 143 mg/dL; LDL/HDL RATIO 3.3 (<3.6); POTASSIUM 3.7 mmol/L (3.5-5.0); SODIUM 134 mmol/L (135-145); TOTAL PROTEIN 7.2 g/dL (6.7-8.2); TRIGLYCERIDES 382 mg/dL; VLDL CHOLESTEROL 76 mg/dL
== END 2021-06-03 08:36 | disposition home or self-care (01) ==
LOC: LAB.S 08:35
PROVIDERS: ATTEND Internal Medicine
DX: I10 Essential (primary) hypertension (principal); E78.5 Hyperlipidemia, unspecified; E29.1 Testicular hypofunction
CPT/HCPCS: 36415; 80053; 80061; 81599; 83721; 84402; 84403; 85025

== ENCOUNTER 2021-06-20 11:52 | Outpatient (CLI) | payer MEDICARE, OTHER ==
[2021-06-20 15:20] LABS: CALCIUM 9.4 mg/dL (8.5-10.3); POTASSIUM 4.2 mmol/L (3.5-5.0)
[2021-06-20 15:26] LABS: CREATININE,URINE 126.5 mg/dL; MICROALBUMIN,URINE 1.9 mg/dL (0-300.0)
== END 2021-06-20 11:53 | disposition home or self-care (01) ==
LOC: LAB.S 11:52
PROVIDERS: ATTEND Physician Assistant
DX: R73.01 Impaired fasting glucose (principal); Z12.5 Encounter for screening for malignant neoplasm of prostate
CPT/HCPCS: 36415; 80048; 82043; 82570; 83036; G0103; 81599; 84153

== ENCOUNTER 2021-09-23 07:25 | Day surgery (SDC) | payer MEDICARE, OTHER ==
[2021-09-23] MEDS ORDERED: LACTATED RINGERS 1,000 ML IV ONE ×2 (07:45→09:33)
[2021-09-23] MEDS ORDERED: PROPOFOL 500 MG/50 ML 500 MG/50 ML VIAL ONE ×2 (07:47→10:00)
[2021-09-23] MEDS ORDERED: LIDOCAINE-MPF 2% 5 ML VIAL ONE (07:47)
--- NOTE | 2021-09-23 08:10 | ANESTHESIA ---
Pre-Anesthesia VS, & Labs - Diagnosis hx of colon polyps - Procedure colonoscopy Vital Signs: Temp Pulse Resp BP Pulse Ox 37.1 C 79 20 160/88 H 96 09/23/21 07:30 09/23/21 07:30 09/23/21 07:30 09/23/21 07:30 09/23/21 07:30 Height: 58 ft Weight (kg): 121.5 kg Body Mass Index: 0.4 BMI Classification: Underweight - NPO >8 hours - Lab Results Lab results reviewed: Yes Home Medications and Allergies Home Medications: Ambulatory Orders Cholecalciferol (Vitamin D3) [Vitamin D3] 50 mcg PO DAILY 09/16/21 Tamsulosin [Flomax] 0.4 mg PO DAILY 09/16/21 Vitamin E 400 unit PO DAILY 09/16/21 metFORMIN [Glucophage] 500 mg PO BIDWM 09/16/21 Aspirin 81 mg PO DAILY 05/09/17 Multivitamin [Multiple Vitamins] 1 tab ORAL DAILY 05/09/17 Rosuvastatin Calcium [Crestor] 40 mg PO QPM 05/09/17 amLODIPine [Norvasc] 10 mg PO DAILY 05/09/17 lisinopriL [Lisinopril] 40 mg PO DAILY 05/09/17 Albuterol Sulfate [Proair Hfa Inhaler] 2 puffs INH Q4H PRN 04/18/18 Fluticasone Propionate [Flovent Diskus] 1 spray BARBARA BID 04/18/18 Fluticasone/Salmeterol [Advair 250-50 Diskus] 1 spray IH BID 04/18/18 Omeprazole 20 mg PO QDDINNER 04/18/18 Testosterone Cypionate [Depo-Testosterone] 0.5 ml IM OAW 04/18/18 Cholecalciferol (Vitamin D3) [Vitamin D3] 50 mcg PO DAILY 09/16/21 Tamsulosin [Flomax] 0.4 mg PO DAILY 09/16/21 Vitamin E 400 unit PO DAILY 09/16/21 metFORMIN [Glucophage] 500 mg PO BIDWM 09/16/21 Allergies/Adverse Reactions: Allergies Allergy/AdvReac Type Severity Reaction Status Date / Time codeine Allergy paranoid Verified 12/24/19 13:57 Anes History & Medical History - Anesthetic History Anesthesia Complications: reports: Post-Operative Nausea/Vomiting Family history of Anesthesia Complications: Denies Family history of Malignant Hyperthermia: Denies - Medical History Cardiovascular: reports: Hypertension, High cholesterol, Murmur Pulmonary: reports: Asthma, Sleep apnea, CPAP use Gastrointestinal: reports: GERD, Colon polyps Urinary: reports: Benign prostate hypertrophy Neuro: reports: None Musculoskeletal: reports: Osteoarthritis Endocrine/Autoimmune: reports: Other Skin: reports: None Smoking Status: Never smoker (cigars) History of Cancer?: No - Surgical History General: reports: Cholecystectomy, Colonoscopy Eyes Ears Nose Throat (EENT): reports: Tonsil/Adenoidectomy Exam General: Alert, Oriented x3 Dental: WNL Mouth Openin Fingerbreadth Neck Mobility: Normal Mallampati classification: III Thyromental Distance: less than 4 cm Respiratory: Lungs clear Cardiovascular: Other (irregular) Mental/Cognitive Status: Alert/Oriented X3, Normal for patient Cognitive Status: Within normal limits Other Exam Comments:: Roberts present Plan Anesthesia Type: General Consent for Procedure(s) Verified and Reviewed: Yes Code Status: Attempt Resuscitation ASA classification: 3-Severe systemic disease Is this case an emergency?: No
[2021-09-23] MEDS ORDERED: SIMETHICONE 40 MG/0.6 ML 30 ML BOTTLE PO ONE (08:44)
[2021-09-23 10:01] VITALS: BP 121/64
--- NOTE | 2021-09-23 10:18 | ANESTHESIA POST OP EVALUATION ---
Anesthesia Post Eval - Post Anesthesia Eval Vitals: Last Vital Signs Temp 36.8 C 09/23/21 09:33 Pulse 72 09/23/21 10:00 Resp 16 09/23/21 10:00 BP 121/64 09/23/21 10:00 Pulse Ox 96 09/23/21 10:00 CV Function Including HR & BP: Stable Pain Control: Satisfactory Nausea & Vomiting: Negative Mental Status: Baseline Respiratory Status: Airway Patent Hydration Status: Satisfactory Anesthesia Complications: None
== END 2021-09-23 07:26 | disposition home or self-care (01) ==
LOC: SDS 07:25
PROVIDERS: ATTEND Surgery
PROC: 0DBL8ZX Excision of Transverse Colon, Via Natural or Artificial Opening Endoscopic, Diagnostic (ICD-10-PCS; 2021-09-23)
PROC: 0DBN8ZX Excision of Sigmoid Colon, Via Natural or Artificial Opening Endoscopic, Diagnostic (ICD-10-PCS; 2021-09-23)
PROC: 0DBM8ZX Excision of Descending Colon, Via Natural or Artificial Opening Endoscopic, Diagnostic (ICD-10-PCS; 2021-09-23)
PROC: 0DBK8ZX Excision of Ascending Colon, Via Natural or Artificial Opening Endoscopic, Diagnostic (ICD-10-PCS; principal; 2021-09-23 08:30)
DX: D12.2 Benign neoplasm of ascending colon (principal); D12.4 Benign neoplasm of descending colon; D12.5 Benign neoplasm of sigmoid colon; D12.3 Benign neoplasm of transverse colon; K57.30 Diverticulosis of large intestine without perforation or abscess without bleeding; I10 Essential (primary) hypertension; J45.909 Unspecified asthma, uncomplicated; G47.33 Obstructive sleep apnea (adult) (pediatric); E66.9 Obesity, unspecified; Z68.41 Body mass index [BMI] 40.0-44.9, adult; Z80.9 Family history of malignant neoplasm, unspecified
CPT/HCPCS: 45380; 45385; A9270; J7120

== ENCOUNTER 2022-06-23 11:29 | Outpatient (CLI) | payer MEDICARE, OTHER ==
[2022-06-23 14:33] LABS: BASOPHILS # (AUTO) 0.1 10^3/uL (0.0-0.1); BASOPHILS % (AUTO) 1.1 %; EOSINOPHILS # (AUTO) 0.2 10^3/uL (0.0-0.7); HCT - HEMATOCRIT 51.3 % (42.0-52.0); HGB - HEMOGLOBIN 17.1 g/dL (14.0-18.0); LYMPHOCYTES # (AUTO) 3.3 10^3/uL (1.5-3.5); LYMPHOCYTES % (AUTO) 40.7 %; MEAN CORPUSCULAR HEMOGLOBIN 29.6 pg (27.0-31.0); MEAN CORPUSCULAR HGB CONC 33.3 g/dL (32.0-36.0); MEAN CORPUSCULAR VOLUME 88.8 fL (80.0-94.0); MEAN PLATELET VOLUME 10.9 fL (7.4-11.4); MONOCYTES # (AUTO) 0.7 10^3/uL (0.0-1.0); NEUTROPHILS # (AUTO) 3.8 10^3/uL (1.5-6.6); NEUTROPHILS % (AUTO) 46.7 %; PLT - PLATELET COUNT 301 10^3/uL (130-450); RED BLOOD COUNT 5.78 10^6/uL (4.70-6.10); WHITE BLOOD COUNT 8.1 x10^3/uL (4.8-10.8)
[2022-06-23 15:32] LABS: ALBUMIN 4.8 g/dL (3.2-5.5); ALBUMIN/GLOBULIN RATIO 1.8 (1.0-2.2); ALKALINE PHOSPHATASE 60 IU/L (42-121); ALT ALANINE AMINOTRANSFERASE 74 IU/L (10-60); AST ASPARTATE AMINOTRANSFERASE 38 IU/L (10-42); BILIRUBIN,TOTAL 0.9 mg/dL (0.2-1.0); BUN - BLOOD UREA NITROGEN 14 mg/dL (6-20); CALCIUM 9.7 mg/dL (8.5-10.3); CARBON DIOXIDE - CO2 30 mmol/L (21-32); CHLORIDE 101 mmol/L (101-111); CHOLESTEROL 135 mg/dL; GFR - MDRD 74 (>89); GLUCOSE 122 mg/dL (70-100); HDL CHOLESTEROL 34 mg/dL; LDL CHOLESTEROL,CALCULATED 54 mg/dL; LDL/HDL RATIO 1.6 (<3.6); POTASSIUM 4.3 mmol/L (3.5-5.0); SODIUM 138 mmol/L (135-145); TOTAL PROTEIN 7.5 g/dL (6.7-8.2); TRIGLYCERIDES 236 mg/dL; VLDL CHOLESTEROL 47 mg/dL
[2022-06-23 22:04] LABS: ESTIMATED AVERAGE GLUCOSE 140 mg/dL (70-100); HEMOGLOBIN A1c% 6.5 % (4.27-6.07)
[2022-06-24 18:07] LABS: FREE TESTOSTERONE(DIRECT) 29.2 pg/mL (6.6-18.1)
== END 2022-06-23 11:30 | disposition home or self-care (01) ==
LOC: LAB.S 11:29
PROVIDERS: ATTEND Physician Assistant
DX: I10 Essential (primary) hypertension (principal); R73.01 Impaired fasting glucose; E29.1 Testicular hypofunction
CPT/HCPCS: 36415; 80053; 80061; 83036; 83721; 84402; 84403; 85025

== ENCOUNTER 2022-09-10 12:29 | Outpatient (CLI) | payer MEDICARE, OTHER | END 2022-09-10 23:59 | disposition short-term general hospital (02) | LOC: EMS 12:29 | DX: S83.094A Other dislocation of right patella, initial encounter (principal); W18.39XA Other fall on same level, initial encounter; Y93.01 Activity, walking, marching and hiking; Y92.832 Beach as the place of occurrence of the external cause | CPT/HCPCS: A0425; A0429 ==

== ENCOUNTER 2022-09-12 18:16 | Outpatient (CLI) | payer MEDICARE, OTHER | END 2022-09-12 18:17 | disposition EMS.NT | LOC: EMS 18:16 | DX: Z03.89 Encounter for observation for other suspected diseases and conditions ruled out (principal) ==

== ENCOUNTER 2022-09-27 10:52 | Outpatient (CLI) | payer MEDICARE, OTHER | END 2022-09-27 23:59 | disposition EMS.NT | LOC: EMS 10:52 | DX: Z03.89 Encounter for observation for other suspected diseases and conditions ruled out (principal) ==

== ENCOUNTER 2023-03-16 08:48 | Outpatient (CLI) | payer MEDICARE, OTHER ==
--- NOTE | 2023-03-16 09:25 | Sleep Patient Instructions ---
Sleep Center Visit Summary - Patient Visit Information Reason for Visit: Annual visit - Patient Instructions Additional Instructions: You will continue with CPAP therapy with pressure set at 11-15 cmH2O. A supply prescription will be updated with your DME. I have added a supplier transfer to the order. We encourage you to continue to try to lose weight. Please follow up with the sleep care office in 1 year. - Clinic Information Contact: [facility] [address] [place] [address] [email or web address] T: [phone]
--- NOTE | 2023-03-16 09:32 | SLEEP CARE CONSULTATION ---
Information from patient questionnaire entered by Caron Prajapati. I have reviewed and concur with the information entered by Caron Prajapati. This document represents the service I personally performed and the decisions made by me, Jaylyn Randle ARNP. History of Present Illness Service Date and Time: 03/16/2023 0848 Previous diagnosis: Severe, Obstructive Sleep Apnea-Hypopnea Syndrome AHI: 58.8 (in 2018) Reason for follow up: annual (LAST SEEN 05/2021) Equipment type: CPAP ([facility] 2) Equipment obtained from: Other ([employer]; not getting supplies from them; getting supplies online) Mask style: Nasal pillows Backup mask available: Yes Last cushion change: 2 months Prior sleep studies: Yes (2007 in [place]) Year and Where: 2017 - [facility] HPI additional information: ЮЛИЯ CHRISTINE was diagnosed to have severe, AHI 58.8, obstructive sleep apnea- hypopnea syndrome and returned today for CPAP therapy annual follow-up. Sleep Study - Results Prior sleep studies: Yes (2007 in [place]) Year and Where: 2017 - [facility] CPAP Compliance Data - Data Reviewed with Patient Average duration of nightly device use: 8 HRS 29 MINS 2 SECS Compliance rate %: 97.8 (03/13/22-03/12/23; 365/365 days used) Current pressure setting (cmH2O): 11-15 Average residual AHI: 1.0 Central apnea: 0.1 Obstructive apnea: 0.7 Hypopnea: 0.2 Average large leak: 11 secs Subjective Patient concerns: reports: air blowing in eyes (occasional). denies: aerophagia, mask discomfort, mask leak noise, condensation in mask/hose, nasal congestion, dry mouth, nose, throat, epistaxis Observed to snore while using device: No Current pressure setting perceived as: comfortable On therapy, patient: reports: sleeping better, awakening more refreshed, being more awake and alert during the day, more rested overall. denies: drowsiness while driving Initial [place] Sleepiness Scale score: 13 (in 2018) Current [place] Sleepiness Scale score: 6 (03/16/23) Allergies and Home Medications Known drug allergies: Yes (codeine) Drug allergies reviewed: Yes Home medication list reviewed: Yes (no changes) Allergy and home medication list: Allergies codeine Allergy (Verified 03/14/23 09:35) paranoid Review of Systems Review of systems same as previous: No ([employer] 09/19/2022) Physical Exam Vital signs obtained and entered by: CARON Naidu MA Blood Pressure: 141/80 (RIGHT ARM) Cuff size: regular Heart Rate: 88 O2 Saturation: 97 Height: 5 ft 8 in Weight: 271 lb 12.8 oz Body Mass Index: 41.3 BMI Classification: Morbidly Obese Impression and Plan 1. Obstructive Sleep Apnea-Hypopnea Syndrome, severe, with good treatment compliance and good apnea control. On CPAP therapy, the patient has better sleep quality and is more rested overall. Patient states he was unable to get any accurate supplies from his last CPAP supplier and then they did not contact him about getting supplies. He is just been getting supplies online. Patient was informed that another DME can be used. I will have my academic affairs coordinator inform of DME options. A DWO prescription will then be made. Patient advised to contact this office if further supply problems. Patient has significant improvement of their sleep apnea and is satisfied with current CPAP therapy. Patient denies problems with oral dryness, nasal congestion, epistaxis, skin irritation or aerophagia. Patient's apnea severity and rationale for treatment to reduce apnea, improve sleep quality and reduce cardiovascular and cerebro vascular events was reviewed. I also reviewed the benefit of consistent device use of CPAP for hypertension and depression. 2. Obesity, unspecified. Currently patients BMI is 41.3. Obesity increases the risk of apnea, CPAP pressure requirements and overall health risks especially cardiovascular and diabetes. Thus patient is advised to lose weight. * Continue auto CPAP pressure at 11-15 cmH2O * Transfer DME * Update supply prescription * Notify me if snoring with mask or feeling that the pressure is too much or too little * Attempt to lose weight * Call this office if any problems using CPAP * Return for follow up in 12 months, or sooner if concerns arise Counseling Topics: Spare mask, Weight loss health impact Prescriptions: Device supplies Follow up with Sleep Care in: 1 year Visit Type: In Office Time Spent with Patient (minutes): 25 Provider Statement: I spent 100% of the Face to Face Visit with the patient with greater than 50% spent counseling the patient and coordination of care.
[2023-03-16 09:41] VITALS: BP 141/80; O2SAT 97
== END 2023-03-16 08:49 | disposition home or self-care (01) ==
LOC: SC 08:48
PROVIDERS: ATTEND Nurse Practitioner Family
DX: G47.33 Obstructive sleep apnea (adult) (pediatric) (principal); E66.01 Morbid (severe) obesity due to excess calories; Z68.41 Body mass index [BMI] 40.0-44.9, adult
CPT/HCPCS: 99213; G0463; 99212

== ENCOUNTER 2023-04-02 11:48 | Outpatient (CLI) | payer MEDICARE, OTHER ==
[2023-04-02 15:25] LABS: BASOPHILS # (AUTO) 0.1 10^3/uL (0.0-0.1); BASOPHILS % (AUTO) 0.9 %; EOSINOPHILS # (AUTO) 0.1 10^3/uL (0.0-0.7); EOSINOPHILS % (AUTO) 1.6 %; HCT - HEMATOCRIT 45.9 % (42.0-52.0); HGB - HEMOGLOBIN 15.4 g/dL (14.0-18.0); LYMPHOCYTES # (AUTO) 2.7 10^3/uL (1.5-3.5); LYMPHOCYTES % (AUTO) 35.8 %; MEAN CORPUSCULAR HEMOGLOBIN 29.2 pg (27.0-31.0); MEAN CORPUSCULAR HGB CONC 33.6 g/dL (32.0-36.0); MEAN CORPUSCULAR VOLUME 87.1 fL (80.0-94.0); MEAN PLATELET VOLUME 10.6 fL (7.4-11.4); MONOCYTES # (AUTO) 0.8 10^3/uL (0.0-1.0); MONOCYTES % (AUTO) 10.3 %; NEUTROPHILS # (AUTO) 3.8 10^3/uL (1.5-6.6); NEUTROPHILS % (AUTO) 50.7 %; PLT - PLATELET COUNT 248 10^3/uL (130-450); RED BLOOD COUNT 5.27 10^6/uL (4.70-6.10); RED CELL DISTRIBUTION WIDTH 14.5 % (12.0-15.0); WHITE BLOOD COUNT 7.4 x10^3/uL (4.8-10.8)
[2023-04-02 16:53] LABS: THYROID STIMULATING HORMONE 1.15 uIU/mL (0.34-5.60)
[2023-04-02 17:20] LABS: ALBUMIN 4.5 g/dL (3.2-5.5); ALBUMIN/GLOBULIN RATIO 1.8 (1.0-2.2); ALKALINE PHOSPHATASE 65 IU/L (42-121); ALT ALANINE AMINOTRANSFERASE 44 IU/L (10-60); AST ASPARTATE AMINOTRANSFERASE 27 IU/L (10-42); BILIRUBIN,TOTAL 0.6 mg/dL (0.2-1.0); BUN - BLOOD UREA NITROGEN 13 mg/dL (6-20); CALCIUM 9.5 mg/dL (8.5-10.3); CARBON DIOXIDE - CO2 27 mmol/L (21-32); CHLORIDE 105 mmol/L (101-111); CHOL/HDL RATIO 4.4 (<5.0); CHOLESTEROL 164 mg/dL; CREATININE 0.9 mg/dL (0.6-1.3); GFR - MDRD 83 (>89); GLUCOSE 137 mg/dL (74-104); HDL CHOLESTEROL 37 mg/dL; LDL CHOLESTEROL,CALCULATED 69 mg/dL; LDL/HDL RATIO 1.9 (<3.6); POTASSIUM 3.9 mmol/L (3.5-4.5); SODIUM 138 mmol/L (135-145); TRIGLYCERIDES 289 mg/dL (48-352); VLDL CHOLESTEROL 58 mg/dL
[2023-04-02 20:29] LABS: ESTIMATED AVERAGE GLUCOSE 143 mg/dL (70-100); HEMOGLOBIN A1c% 6.6 % (4.27-6.07)
== END 2023-04-02 11:49 | disposition home or self-care (01) ==
LOC: LAB.S 11:48
PROVIDERS: ATTEND Physician Assistant
DX: E11.9 Type 2 diabetes mellitus without complications (principal); E78.5 Hyperlipidemia, unspecified; Z12.5 Encounter for screening for malignant neoplasm of prostate
CPT/HCPCS: 36415; 80053; 80061; 83036; 84403; 84443; 85025; G0103; 83721; 84153

== ENCOUNTER 2023-08-29 09:48 | Outpatient (CLI) | payer MEDICARE, OTHER ==
[2023-08-29 15:24] LABS: CALCIUM 9.4 mg/dL (8.5-10.3); CREATININE 1.2 mg/dL (0.6-1.3); POTASSIUM 4.3 mmol/L (3.5-4.5)
[2023-08-29 21:22] LABS: ESTIMATED AVERAGE GLUCOSE 148 mg/dL (70-100); HEMOGLOBIN A1c% 6.8 % (4.27-6.07)
== END 2023-08-29 09:49 | disposition home or self-care (01) ==
LOC: LAB.S 09:48
PROVIDERS: ATTEND Physician Assistant
DX: E11.9 Type 2 diabetes mellitus without complications (principal); E29.1 Testicular hypofunction
CPT/HCPCS: 36415; 80048; 83036; 84403

== ENCOUNTER 2023-10-12 08:25 | Day surgery (SDC) | payer MEDICARE, OTHER ==
[2023-10-12] MEDS: LACTATED RINGERS 1,000 ML IV ONE ×2 (08:28→09:51)
--- NOTE | 2023-10-12 08:28 | ANESTHESIA ---
Pre-Anesthesia VS, & Labs - Diagnosis hx polyps - Procedure colonoscopy Height: 5 ft 8 in - NPO >8 hours Last Fluid Intake: am prep - Lab Results Lab results reviewed: Yes Home Medications and Allergies Home Medications: Ambulatory Orders Dulaglutide [Trulicity] See Protocol [facility]Q [facility] 10/11/23 Aspirin 81 mg PO DAILY 05/09/17 Multivitamin [Multiple Vitamins] 1 tab ORAL DAILY 05/09/17 Rosuvastatin Calcium [Crestor] 40 mg PO QPM 05/09/17 amLODIPine [Norvasc] 10 mg PO DAILY 05/09/17 lisinopriL [Lisinopril] 40 mg PO DAILY 05/09/17 Albuterol Sulfate [Proair Hfa Inhaler] 2 puffs INH Q4H PRN 04/18/18 Fluticasone Propion/Salmeterol [Advair 250-50 Diskus] 1 spray IH BID 04/18/18 Omeprazole 20 mg PO QDDINNER 04/18/18 Testosterone Cypionate [Depo-Testosterone] 0.5 ml IM OAW 04/18/18 Cholecalciferol (Vitamin D3) [Vitamin D3] 50 mcg PO DAILY 09/16/21 Tamsulosin [Flomax] 0.4 mg PO DAILY 09/16/21 Vitamin E 400 unit PO DAILY 09/16/21 metFORMIN [Glucophage] 500 mg PO BIDWM 09/16/21 Dulaglutide [Trulicity] See Protocol [facility] 10/11/23 Allergies/Adverse Reactions: Allergies Allergy/AdvReac Type Severity Reaction Status Date / Time codeine AdvReac Mild paranoid Verified 10/11/23 14:08 Anes History & Medical History - Anesthetic History Anesthesia Complications: reports: No previous complications Family history of Anesthesia Complications: Denies Family history of Malignant Hyperthermia: Denies - Medical History Cardiovascular: reports: Hypertension, High cholesterol, Murmur Pulmonary: reports: Asthma, Sleep apnea Gastrointestinal: reports: Colon polyps, Cholelithiasis Urinary: reports: Benign prostate hypertrophy Neuro: reports: None Musculoskeletal: reports: Osteoarthritis, Other Endocrine/Autoimmune: reports: Type 2 diabetes Skin: reports: None Smoking Status: Never smoker (cigars) - Surgical History General: reports: Cholecystectomy Eyes Ears Nose Throat (EENT): reports: Tonsil/Adenoidectomy Orthopedic: reports: Arthroscopic surgery Exam General: Alert, Oriented x3, Cooperative Dental: WNL Mouth Openin Fingerbreadth Neck Mobility: Reduced Mallampati classification: II Thyromental Distance: 4-6 cm Respiratory: Lungs clear, Normal breath sounds, No respiratory distress Cardiovascular: Regular rate Neurological: Normal speech Mental/Cognitive Status: Alert/Oriented X3, Normal for patient Plan Anesthesia Type: Total IV Consent for Procedure(s) Verified and Reviewed: Yes Code Status: Attempt Resuscitation ASA classification: 3-Severe systemic disease Is this case an emergency?: No
[2023-10-12] MEDS ORDERED: MIDAZOLAM 2 MG/2 ML VIAL ONE (09:08)
[2023-10-12] MEDS ORDERED: PROPOFOL 500 MG/50 ML 500 MG/50 ML VIAL ONE (09:09)
[2023-10-12] MEDS ORDERED: LIDOCAINE-PF 2% 10 ML AMP SUBQ ONE (09:09)
--- NOTE | 2023-10-12 10:14 | ANESTHESIA POST OP EVALUATION ---
Anesthesia Post Eval - Post Anesthesia Eval Vitals: Last Vital Signs Temp 36.8 C 10/12/23 09:51 Pulse 58 L 10/12/23 10:00 Resp 18 10/12/23 10:00 BP 114/58 L 10/12/23 10:00 Pulse Ox 96 10/12/23 10:00 O2 Flow Rate CV Function Including HR & BP: Stable Pain Control: Satisfactory Nausea & Vomiting: Negative Mental Status: Baseline Respiratory Status: Airway Patent Hydration Status: Satisfactory Anesthesia Complications: None
[2023-10-12 10:34] VITALS: BP 134/64; O2SAT 97
== END 2023-10-12 08:26 | disposition home or self-care (01) ==
LOC: SDS 08:25
PROVIDERS: ATTEND Surgery
PROC: 0DBL8ZZ Excision of Transverse Colon, Via Natural or Artificial Opening Endoscopic (ICD-10-PCS; principal; 2023-10-12 09:30)
DX: Z12.11 Encounter for screening for malignant neoplasm of colon (principal); D12.3 Benign neoplasm of transverse colon; K57.30 Diverticulosis of large intestine without perforation or abscess without bleeding; E11.9 Type 2 diabetes mellitus without complications; J44.9 Chronic obstructive pulmonary disease, unspecified; Z79.85 Long-term (current) use of injectable non-insulin antidiabetic drugs; Z79.84 Long term (current) use of oral hypoglycemic drugs
CPT/HCPCS: 45380; J7120